=== PATIENT | male | born 1995 | race Two or more races ===

== ENCOUNTER 2021-07-21 23:03 | Emergency (ER) | payer OTHER ==
[~2021-07-21] VITALS: Ht 172.7 cm; Wt 99.8 kg
--- NOTE | 2021-07-21 23:25 | NUR ---
AJAY PISANO FROM HOME C/O OVERDOSE. 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 PATIENT A/O X 4, RR EVEN, NO SOB NOTED. PATIENT TAKEN TO ER BED 14. PATIENT CONNECTED TO FORENSIC SPECIALIST AND POX. WILL CONTINUE TO MONITOR.
[2021-07-22] MEDS ORDERED: NALO1DIS2 IM (00:52)
--- NOTE | 2021-07-22 01:08 | NUR ---
Patient discharged to home in stable condition. Written and verbal after care instructions given. Patient verbalizes understanding of instruction.
[2021-07-22 01:09] VITALS: BP 134/80
== END 2021-07-22 01:10 | disposition home or self-care (01) ==
LOC: ER 23:05
DX: T40.601A Poisoning by unspecified narcotics, accidental (unintentional), initial encounter (principal); Z79.899 Other long term (current) drug therapy; Y92.89 Other specified places as the place of occurrence of the external cause